=== PATIENT | female | born 1950 | race Asian ===

== ENCOUNTER 2019-03-18 22:46 | Emergency (ER) | payer MEDICARE ==
[~2019-03-18] VITALS: Ht 152.4 cm; Wt 48.0 kg
[2019-03-19] MEDS ORDERED: CEPH250T PO (00:45)
[2019-03-19] MEDS ORDERED: bacitracin 15gm ointment TP ONE (00:45)
[2019-03-19 01:27] VITALS: BP 115/65
== END 2019-03-19 01:30 | disposition home or self-care (01) ==
LOC: ER 22:47
DX: L03.012 Cellulitis of left finger (principal); Z88.2 Allergy status to sulfonamides; Z88.5 Allergy status to narcotic agent
CPT/HCPCS: 10160; 99284

== ENCOUNTER 2022-04-03 06:39 | Emergency (ER) | payer MEDICARE, OTHER ==
[~2022-04-03] VITALS: Ht 152.4 cm; Wt 52.3 kg
[2022-04-03 10:12] VITALS: BP 141/75
== END 2022-04-03 10:13 | disposition home or self-care (01) ==
LOC: ER 06:40
DX: S00.03XA Contusion of scalp, initial encounter (principal); E11.9 Type 2 diabetes mellitus without complications; Z88.2 Allergy status to sulfonamides; Z88.8 Allergy status to other drugs, medicaments and biological substances; Z88.6 Allergy status to analgesic agent; Z98.890 Other specified postprocedural states; W06.XXXA Fall from bed, initial encounter; Y93.89 Activity, other specified; Y92.89 Other specified places as the place of occurrence of the external cause; Y99.8 Other external cause status
CPT/HCPCS: 70450; 99284